=== PATIENT | female | born 1945 | race Caucasian/White ===

== ENCOUNTER → 2016-05-20 | Outpatient (CLI) | payer OTHER ==
[2016-05-20 13:04] LABS: URINE APPEARANCE CLEAR (CLEAR); URINE BILIRUBIN NEG (NEG); URINE COLOR YELLOW; URINE NITRITE NEG (NEG); URINE PH 6.5 (4.5-7.5); URINE SPECIFIC GRAVITY 1.024 (1.000-1.030); UROBILINOGEN NEG (NEG); ZZUR CULT IF INDIC CLEAN CATCH NO
[2016-05-20 13:08] LABS: MANUAL MICROSCOPIC REQUIRED? NO; REVIEW REQ? NO
[2016-05-20 13:18] LABS: ALT/SGPT 28 U/L (12-78); BLOOD UREA NITROGEN 16 mg/dl (7-18); BUN/CREATININE RATIO 22.2 (10-20); CALCIUM 9.4 mg/dl (8.5-10.1); CARBON DIOXIDE 31 mmol/L (21-32); CHLORIDE 106 mmol/L (98-107); GLUCOSE 102 mg/dl (70-99); POTASSIUM 3.9 mmol/L (3.5-5.1); SODIUM 142 mmol/L (136-145)
[2016-05-20 13:21] LABS: ALKALINE PHOSPHATASE 82 U/L (45-117); AST/SGOT 18 U/L (15-37); CHOLESTEROL 134 mg/dl (0-200); CHOLESTEROL/HDL RATIO 2.9; HDL CHOLESTEROL 47 mg/dl; LDL CHOLESTEROL CALCULATED 63 mg/dl; TRIGLYCERIDES 120 mg/dl (0-150); VERY LOW DENSITY LIPOPROT CALC 24 mg/dl
[2016-05-20 13:49] LABS: ESTIMATED AVERAGE GLUCOSE 108 mg/dl; HA1C FLAG Normal (Normal)
== END | disposition home or self-care (01) ==
LOC: C.LABBFT 08:44
PROVIDERS: ATTEND Physician Assistant Medical
DX: R73.01 Impaired fasting glucose (principal); E78.5 Hyperlipidemia, unspecified; E55.9 Vitamin D deficiency, unspecified

== ENCOUNTER → 2016-07-24 | Outpatient (CLI) | payer OTHER ==
--- NOTE | 2016-07-25 14:23 | MAMMOGRAPHY REPORT ---
BILATERAL DIGITAL SCREENING MAMMOGRAM WITH CAD: 07/24/2016 CLINICAL HISTORY: Routine screening. Patient has no complaints. TECHNIQUE: Bilateral CC and MLO views were obtained. Current study was also evaluated with a Compute r Aided Detection (CAD) system. COMPARISON: Comparison is made to exams dated: 07/19/2015 mammogram, 07/11/2014 mammogram, 07/07/2013 m ammogram, 07/01/2012 mammogram, 01/01/2012 mammogram, and 07/01/2011 mammogram - [facility]. BREAST COMPOSITION: The tissue of both breasts is heterogeneously dense, which may obscure small mas ses. Mild involutional changes comparing to more remote available prior mammograms. FINDINGS: There are numerous bilateral benign rim calcifications. No new suspicious mass, architectu ral distortion or cluster of suspicious microcalcifications is seen. IMPRESSION: ACR BI-RADS CATEGORY 1: NEGATIVE There is no mammographic evidence of malignancy. A 1 year screening mammogram is recommended. The pa tient will receive written notification of the results. Approximately 10% of breast cancers are not detected with mammography. A negative mammographic report should not delay biopsy if a clinically suggestive mass is present. Charo Hernandez M.D. ay/:07/24/2016 16:22:25 Sap Architect: Belem Avila RT(R)(Jair)(BD), [facility] letter sent: Normal 1/2 BI-RADS Code: ACR BI-RADS Category 1: Negative
== END | disposition home or self-care (01) ==
LOC: C.MAMM 08:21
PROVIDERS: ATTEND Internal Medicine
DX: Z12.31 Encounter for screening mammogram for malignant neoplasm of breast (principal)

== ENCOUNTER → 2016-12-09 | Outpatient (CLI) | payer OTHER ==
[2016-12-09 12:28] LABS: BASO ABS # 0.09 K/uL (0-0.2); COMPLETE YES; EOS % 2.2 %; HEMATOCRIT 44.8 % (37-47); IG% 0.3 %; LYMPH % 26.3 %; LYMPH ABS # 2.38 K/uL (1.2-3.4); MEAN CELL VOLUME 92.6 fL (80-100); MEAN CORPUSCULAR HEMOGLOBIN 30.8 pg (25-34); MEAN CORPUSCULAR HGB CONC 33.3 g/dl (32-36); MEAN PLATELET VOLUME 11.7 fL (7.4-10.4); MONO % 7.1 %; NEUT % 63.1 %; PLATELET COUNT 274 K/uL (130-400); RED BLOOD COUNT 4.84 M/uL (4.2-5.4); WHITE BLOOD COUNT 9.05 K/uL (4.8-10.8)
[2016-12-09 12:29] LABS: URINE APPEARANCE CLEAR (CLEAR); URINE BILIRUBIN NEG (NEG); URINE COLOR YELLOW; URINE EPITHELIAL CELL AUTO 20-30 /lpf (0-5); URINE NITRITE NEG (NEG); URINE PH 6.5 (4.5-7.5); URINE SPECIFIC GRAVITY 1.022 (1.000-1.030); UROBILINOGEN NEG (NEG); ZZUR CULT IF INDIC CLEAN CATCH NO
[2016-12-09 12:36] LABS: MANUAL MICROSCOPIC REQUIRED? NO; REVIEW REQ? NO
[2016-12-09 12:46] LABS: ALT/SGPT 28 U/L (12-78); BLOOD UREA NITROGEN 14 mg/dl (7-18); BUN/CREATININE RATIO 19.7 (10-20); CALCIUM 9.9 mg/dl (8.5-10.1); CARBON DIOXIDE 29 mmol/L (21-32); CHLORIDE 105 mmol/L (98-107); CHOLESTEROL 125 mg/dl (0-200); CREATININE 0.69 mg/dl (0.60-1.20); GLUCOSE 102 mg/dl (70-99); POTASSIUM 4.3 mmol/L (3.5-5.1); SODIUM 140 mmol/L (136-145); TRIGLYCERIDES 99 mg/dl (0-150); VERY LOW DENSITY LIPOPROT CALC 20 mg/dl
[2016-12-09 12:52] LABS: ALB/GLOB RATIO 0.9 (0.9-2); ALKALINE PHOSPHATASE 82 U/L (45-117); AST/SGOT 19 U/L (15-37); CHOLESTEROL/HDL RATIO 2.8; HDL CHOLESTEROL 45 mg/dl; LDL CHOLESTEROL CALCULATED 60 mg/dl
[2016-12-09 13:00] LABS: ESTIMATED AVERAGE GLUCOSE 108 mg/dl; HA1C FLAG Normal (Normal)
[2016-12-09 13:11] LABS: RATIO 34.2 mcg/mg (0-30.0)
== END | disposition home or self-care (01) ==
LOC: C.LABBFT 07:56
PROVIDERS: ATTEND Physician Assistant Medical
DX: I10 Essential (primary) hypertension (principal); R73.01 Impaired fasting glucose; E55.9 Vitamin D deficiency, unspecified

== ENCOUNTER → 2016-12-16 | Outpatient (CLI) | payer OTHER ==
[2016-12-16 12:45] LABS: URINE APPEARANCE CLEAR (CLEAR); URINE BILIRUBIN NEG (NEG); URINE COLOR YELLOW; URINE EPITHELIAL CELL AUTO 20-30 /lpf (0-5); URINE NITRITE NEG (NEG); URINE SPECIFIC GRAVITY 1.019 (1.000-1.030); UROBILINOGEN NEG (NEG)
[2016-12-16 12:53] LABS: MANUAL MICROSCOPIC REQUIRED? NO; REVIEW REQ? NO
== END | disposition home or self-care (01) ==
LOC: C.LABBFT 07:59
PROVIDERS: ATTEND Physician Assistant Medical
DX: R31.29 Other microscopic hematuria (principal)

== ENCOUNTER → 2017-06-04 | Outpatient (CLI) | payer OTHER ==
[2017-06-04 12:57] LABS: HEMOGLOBIN A1C 5.6 % (4.5-5.6)
[2017-06-04 13:19] LABS: BLOOD UREA NITROGEN 11 mg/dl (7-18); CREATININE 0.76 mg/dl (0.60-1.20); GLUCOSE 95 mg/dl (70-99)
[2017-06-04 13:20] LABS: ALBUMIN 3.7 gm/dl (3.4-5.0); ALT/SGPT 35 U/L (12-78); AST/SGOT 23 U/L (15-37); CALCIUM 9.6 mg/dl (8.5-10.1); CARBON DIOXIDE 27 mmol/L (21-32); POTASSIUM 3.6 mmol/L (3.5-5.1); SODIUM 138 mmol/L (136-145)
[2017-06-04 13:24] LABS: ALKALINE PHOSPHATASE 84 U/L (45-117); CHOLESTEROL 110 mg/dl (0-200); LDL CHOLESTEROL CALCULATED 51 mg/dl; TOTAL PROTEIN 7.5 gm/dl (6.4-8.2)
== END | disposition home or self-care (01) ==
LOC: C.LABBFT 08:21
PROVIDERS: ATTEND Physician Assistant Medical
DX: R73.01 Impaired fasting glucose (principal)

== ENCOUNTER 2024-04-23 13:00 | Inpatient (IN) ==
--- NOTE | 2024-04-23 13:43 | Emergency Department Note ---
Impression & Plan Acute hypoxic respiratory failure, Influenza A ED Provider Note NAME: ANGEL DAMICO AGE: 78 SEX: F : 1945 ARRIVES VIA: Walk-In INFORMANT: Patient ED PROVIDER(S): Eliezer Mccormick DO CHIEF COMPLAINT: cough, and weakness HPI: Patient is a 78-year-old female with a past medical history of hypertension, hyperlipidemia and hypothyroidism who presents to the ER for cough, congestion. Symptoms started on Thursday. She denies any chest pain or real shortness of breath. No belly pain. No nausea, vomiting, or diarrhea. No history of smoking. She has been around her granddaughter who is also been sick. ADDITIONAL HISTORY OBTAINED: is present bedside and provides additional history and notes that he started getting sick with the same symptoms a day before his started. Chronic Medical/Social Conditions Affecting Care: Per HPI PAST MEDICAL HISTORY:See Below PAST SURGICAL HISTORY:See Below FAMILY HISTORY:See Below SOCIAL HISTORY:See Below HOME MEDICATIONS:See Below ALLERGIES:See Below VITALS:See Below PHYSICAL EXAMINATION: GENERAL: Sitting up in bed, alert, persistent cough, disheveled EYE EXAM: normal conjunctiva. PERRL and EOM's grossly intact. OROPHARYNX: no exudate, no erythema, lips, buccal mucosa, and tongue normal and mucous membranes are moist NECK: supple, no nuchal rigidity, no adenopathy, non-tender LUNGS: Wheezing bilaterally. Normal chest wall mechanics HEART: no murmurs, S1 normal and S2 normal ABDOMEN: abdomen soft, non-tender, normo-active bowel sounds, no masses, no rebound or guarding. UPPER EXTREMITIES: upper extremities are grossly normal. LOWER EXTREMITIES: No pitting edema. NEURO EXAM: Normal sensorium, cranial nerves II-XII grossly intact, normal speech, no gross weakness of arms, no gross weakness of legs. MEDICAL DECISION MAKING: Patient is a 78-year-old female who presents ER for above-stated complaint. IV was established and blood work was obtained. Labs show a leukocytosis of 2000. No significant anemia. BMP with LFTs bilirubin was unremarkable. Mild transaminitis. Troponin was negative. Pro-Bong was normal. Viral panel was positive for influenza. Chest x-ray was clean. Patient was given neb treatments. Patient was found to be hypoxic at 87% on room air. She was placed on 2 L nasal cannula. She was initially hypotensive and tachycardic and this responded with IV fluids. She was also given IV Rocephin. Updated bedside discussed case with the hospitalist for further evaluation management treatment. Consults/Care Managements Discussions: Per [facility] Triage Nursing notes reviewed. Limited review of prior medical records performed Vital Signs: reviewed and remarkable for hypotensive, tachycardic and hypoxic Differential diagnosis: Differential diagnosis includes etiologies such as sepsis, UTI, pneumonia, metabolic, electrolyte abnormalities, cardiac sources, intracerebral event, toxicologic, neurological, as well as others were entertained. ER treatment provided: See below Diagnostics interpreted by me include EKG and cardiac monitoring as listed below: -Cardiac Monitoring: An order was placed for continuous cardiac monitoring. The monitor shows a rate of 95 with sinus rhythm. -ECG: Sinus rhythm rate 84 Normal axis No PVCs QTc 434 -Laboratory studies:Interpreted by me as stated above in MDM and shown below. Imaging studies: Xrays: As interpreted by me: Portable AP upright 1 view of the chest shows no focal infiltrate CTs show: none Procedures:none Critical Care: I have personally spent 33 minutes of critical care time in the direct management of this patient. This includes bedside care, interpretation of diagnostic studies, and testing, discussion with consultants, patient, and family members, and other required patient management activities. This 33 minutes is in excess of all separately billable procedures. Past Med/Surg History Problem List (Updated 04/23/24 @ 18:39 by Eliezer Mccormick DO) Influenza A (Acute) Acute hypoxic respiratory failure (Acute) Influenza A Wears hearing aid in both ears Phonak L90R disp 06/11/22 Sensorineural hearing loss (SNHL) of both ears Vitamin D deficiency (Acute) Vertigo (Acute) hx - no recent problems Postmenopausal hormone therapy (Acute) Obesity (Acute) Muscle spasm (Acute) Microscopic hematuria (Acute) Impaired fasting glucose (Acute) Hypertension (Chronic) Hyperlipidemia (Chronic) Hypercalcemia (Acute) Cervical radiculopathy (Acute) Carotid artery plaque (Chronic) Carotid ultrasound October 24, 2019 with less than 50% stenoses in the internal carotid arteries. Antegrade flow both vertebral arteries. Greater than 50% stenosis right external carotid artery. Compared to study of May 2016 internal carotid artery findings unchanged. Right external carotid artery stenosis new. BMI 33.0-33.9,adult (Acute) Arthritis (Acute) Urethral caruncle Family history of colon cancer Hymenal remnant Moderate aortic stenosis (Chronic) Echocardiogram September 28, 2020 with normal biventricular systolic function, mild LVH, moderate aortic stenosis, trace mitral and trace tricuspid regurgitation. ANA 1.0 sq cm. DVI 0.32. Aortic valve mean gradient 21.8 mm Hg. Hypothyroidism Medical History Anemia Kidney stones Osteoarthritis Surgical History H/O colonoscopy History of bilateral tubal ligation History of dilation and curettage History of left cataract surgery Family History Mother Colon cancer Brother Colon cancer Prostate cancer Myocardial infarction Father Heart disease Myocardial infarction Family/Other Hypertension Other No family history of adverse response to anesthesia No family history of bleeding disorder Denies family history of Ovarian cancer Breast cancer Social History Smoking Status: Never smoker Second Hand Exposure: No; Do You Dip or Chew Tobacco: No; Hx Alcohol Use: No Hx Substance Use: No Preferred Language: Zimbabwean Communication Ability: Effective Visual Impairment: No Limitations Hearing Ability: Hard of Hearing Inspector Weights And Measures Required: No Beliefs That Will Affect Care: None marital status: Current Living Situation: Spouse current occupational status: retired current occupation: used to work at [employer] Feels Safe at Home: Yes Childhood Exposure to Second-Hand Smoke: Yes Diet: low carbohydrate, low salt and other Diet Comment: cutting back on bread consumption caffeine: Yes Dental Care, Regularly: No Physical Activity Frequency: 3-4 Times per Week Physical Activity Frequency Comment: Up and down stairs often Seatbelt Use: always Sunscreen Use: Yes Assistive Devices: Glasses and Hearing Aid - Bilateral Allergies Allergies Allergy/AdvReac Type Severity Reaction Status Date / Time No Known Drug Allergies Allergy Verified 03/30/24 10:14 Home Meds Previous Rx's Medication Instructions Recorded Synthroid 25 mcg tablet 25 mcg PO DAILY #90 tabs 03/30/24 (levothyroxine) amlodipine 10 mg tablet 10 mg PO QAM #90 tabs 03/30/24 atorvastatin 20 mg tablet 20 mg PO DAILY #90 tabs 03/30/24 hydrochlorothiazide 25 mg tablet 25 mg PO QAM #90 tabs 03/30/24 lisinopril 40 mg tablet 40 mg PO QAM #90 tabs 03/30/24 metoprolol succinate 100 mg 100 mg PO QAM #90 tabs 03/30/24 tablet,extended release 24 hr potassium chloride 10 mEq 10 meq PO QAM #90 tabs 03/30/24 tablet,extended release Results & Data (ED) Vital Signs Vital Signs - 24 hr 04/23/24 13:01 04/23/24 13:27 04/23/24 14:01 Temperature 36.5 C Temperature Source Temporal Artery Scan Pulse Rate 95 H 86 Pulse Rate [Right Finger] Respiratory Rate 18 Respiratory Effort / Characteristics Non-Labored Respiratory Depth Normal Blood Pressure 97/62 L Blood Pressure [Right Arm] Blood Pressure Mean 73 Blood Pressure Mean [Right Arm] Blood Pressure Position Sitting Pulse Oximetry 89 L 89 L Oxygen Delivery Method Room Air Room Air Sepsis Recent Fever Within 48 Hours Yes Sepsis New/Unexplained Change in Mental Status No Sepsis Action Taken by Nursing No Action Required Oxygen Flow Rate - Titration 2 Pulse Oximetry Post Tiitration 92 04/23/24 15:01 04/23/24 15:59 Temperature Temperature Source Pulse Rate Pulse Rate [Right Finger] 85 Respiratory Rate 24 Respiratory Effort / Characteristics Spontaneous SOB on Exertion Respiratory Depth Blood Pressure 134/66 Blood Pressure [Right Arm] 117/44 L Blood Pressure Mean 80 Blood Pressure Mean [Right Arm] 68 Blood Pressure Position Pulse Oximetry 93 Oxygen Delivery Method Room Air Sepsis Recent Fever Within 48 Hours Sepsis New/Unexplained Change in Mental Status Sepsis Action Taken by Nursing Oxygen Flow Rate - Titration Pulse Oximetry Post Tiitration Laboratory Data 04/23/24 14:00 04/23/24 14:00 Lab Results 04/23/24 04/23/24 04/23/24 Range/Units 13:25 14:00 14:07 WBC 17.16 H (4.8-10.8) K/ul RBC 5.04 (4.20-5.40) M/uL Hgb 15.3 (12.0-16.0) g/dl POC Hgb 15.6 (12.0-16.0) g/dl Hct 44.7 (37.0-47.0) % POC Hct 46 (37-47) % MCV 88.7 (80.0-100.0) fL MCH 30.4 (25.0-34.0) pg MCHC 34.2 (32.0-36.0) g/dL RDW Std Deviation 40.4 (36.4-46.3) fL RDW Coeff of [place] 12.5 (11.5-14.5) % Plt Count 273 (130-400) K/uL MPV 10.9 (9.4-12.4) fL Immature Gran % (Auto) 1.5 % Neut % (Auto) 82.1 % Lymph % (Auto) 7.1 % [facility] % (Auto) 8.9 % Eos % (Auto) 0.1 % Baso % (Auto) 0.3 % Neut # (Auto) 14.11 H (1.40-6.50) K/uL Lymph # (Auto) 1.21 (1.20-3.40) K/uL [facility] # (Auto) 1.52 H (0.11-0.59) K/uL Eos # (Auto) 0.01 (0.00-0.50) K/uL Baso # (Auto) 0.06 (0.00-0.20) K/uL Immature Gran # (Auto) 0.25 H (0.01-0.20) K/uL POC Sodium 138 (135-144) mmol/L Sodium 135 L (136-145) mmol/L POC Potassium 3.8 (3.3-5.0) mmol/L Potassium 4.1 (3.5-5.1) mmol/L POC Chloride 100 L (101-112) mmol/L Chloride 101 (98-107) mmol/L Carbon Dioxide 25 (21-32) mmol/L POC Total CO2 25 (24-31) mmol/L Anion Gap 9 (3-11) POC Anion Gap 18.0 (16-25) mmol/L POC BUN 12 (7-18) mg/dl BUN 13 (6-23) mg/dl Creatinine 0.81 (0.6-1.2) mg/dl POC Creatinine 0.8 (0.6-1.3) mg/dl Est Cr Clr Drug Dosing 64.7 ml/min eGFR 74.26 BUN/Creatinine Ratio 16.0 (10-20) Glucose 127 H (70-99(Fasting)) mg/dl POC Glucose (other) 134 H (70-99) mg/dl Lactate 1.5 (0.4-2.0) mmol/L Calcium 9.0 (8.6-10.3) mg/dl POC Ioniz Calcium Misael 1.13 (1.12-1.32) mmol/l Total Bilirubin 0.9 (0.2-1.0) mg/dl AST 48 H (13-39) U/L ALT 57 H (7-52) U/L Alkaline Phosphatase 68 (34-104) U/L Troponin I High Sens 6.4 (0-14) pg/ml Total Protein 7.6 (6.0-8.3) gm/dl Albumin 3.7 (3.4-5.0) gm/dl Globulin 3.9 (2.5-4.0) gm/dl Albumin/Globulin Ratio 0.9 (0.9-2) Lipase 8 L (11-82) U/L Procalcitonin 0.05 (0-0.5) ng/ml Adenovirus (PCR) Not Detected (NotDetected) B. pertussis DNA (PCR) Not Detected (NotDetected) B.parapertussis DNA PCR Not Detected (NotDetected) C. pneumoniae DNA (PCR) Not Detected (NotDetected) Coronavirus OC43 (PCR) Not Detected (NotDetected) Coronavirus HKU1 (PCR) Not Detected (NotDetected) Coronavirus 229E (PCR) Not Detected (NotDetected) SARS-CoV-2 (PCR) Not Detected (NotDetected) Coronavirus NL63 (PCR) Not Detected (NotDetected) Human Metapneumovir PCR Not Detected (NotDetected) Influenza A (H3) PCR DETECTED A (NotDetected) Influenza Type B (PCR) Not Detected (NotDetected) M. pneumoniae (PCR) Not Detected (NotDetected) Parainfluenza 1 (PCR) Not Detected (NotDetected) Parainfluenza 2 (PCR) Not Detected (NotDetected) Parainfluenza 3 (PCR) Not Detected (NotDetected) Parainfluenza 4 (PCR) Not Detected (NotDetected) RSV (PCR) Not Detected (NotDetected) Entero/Rhino (PCR) Not Detected (NotDetected) Administered Medications Discontinued Medications Albuterol (Albuterol 0.083% Nebu Soln 3 Ml Vial) 2.5 mg NEB NOW STA; Protocol Stop: 04/23/24 15:24 Last Admin: 04/23/24 15:42 Dose: 2.5 mg Documented By: CEF Benzonatate (Benzonatate 100 Mg Capsule) 100 mg PO NOW ONE Stop: 04/23/24 13:39 Last Admin: 04/23/24 14:17 Dose: 100 mg Documented By: SANDER Sodium Chloride (Nss) 1,000 mls @ 999 mls/hr IV .Q1H1M ONE Stop: 04/23/24 14:38 Last Infusion: 04/23/24 17:14 Dose: Infused Documented By: Admin: 04/23/24 14:18 Dose: 999 mls/hr Documented By: SANDER Ceftriaxone Sodium (Rocephin) 2,000 mg in 50 mls @ 100 mls/hr IV NOW STA Stop: 04/23/24 14:13 Last Infusion: 04/23/24 15:45 Dose: Infused Documented By: Admin: 04/23/24 14:17 Dose: 100 mls/hr Documented By: MWMimi Sodium Chloride (Nss) 1,000 mls @ 999 mls/hr IV .Q1H1M ONE Stop: 04/23/24 16:23 Last Infusion: 04/23/24 17:14 Dose: Infused Documented By: Admin: 04/23/24 15:45 Dose: 999 mls/hr Documented By: CEF Imaging Data Radiologist's Impression: Chest X-Ray 04/23/24 13:29 HISTORY: Chest pain. TECHNIQUE: Portable AP radiographs of the chest. COMPARISON: None. FINDINGS: No focal lung consolidation. No pneumothorax or pleural effusion. Normal heart size. Left-sided aortic arch. Midline trachea. No acute osseous abnormality. Included upper abdomen is unremarkable. IMPRESSION: No acute cardiopulmonary findings. Electronically signed by Viral Damon 04-23-2024 2:22 PM Discharge Plan Visit Data Chief Complaint: Flu Like Symptoms Stated Complaint: COUGH, DIARRHEA, DRY MOUTH ED Provider: Eliezer Mccormick Discharge Problem: Acute hypoxic respiratory failure, Influenza A Discharge Instructions Interventions: ED Discharge Assessment Last Done: 04/23/24 18:22
[2024-04-23] MEDS: BENZONATATE 100 MG CAPSULE PO ONE (14:17)
[2024-04-23] MEDS: cefTRIAXone SODIUM 2,000 MG/50 ML BAG IV STA (14:17)
[2024-04-23] MEDS: SODIUM CHLORIDE 0.9% 1,000 ML IV ONE ×2 (14:18→15:45)
[2024-04-23 14:20] LABS: iSTAT Creatinine 0.8 mg/dl (0.6-1.3); iSTAT Hemoglobin 15.6 g/dl (12.0-16.0); iSTAT Ionized Calcium 1.13 mmol/l (1.12-1.32); iSTAT Potassium 3.8 mmol/L (3.3-5.0)
--- NOTE | 2024-04-23 14:22 | XRay Report ---
HISTORY: Chest pain. TECHNIQUE: Portable AP radiographs of the chest. COMPARISON: None. FINDINGS: No focal lung consolidation. No pneumothorax or pleural effusion. Normal heart size. Left-sided aortic arch. Midline trachea. No acute osseous abnormality. Included upper abdomen is unremarkable. IMPRESSION: No acute cardiopulmonary findings. Electronically signed by Viral Damon 04-23-2024 2:22 PM
[2024-04-23 14:30] LABS: Basophils # (auto) 0.06 K/uL (0.00-0.20); Basophils % (auto) 0.3 %; Eosinophils # (auto) 0.01 K/uL (0.00-0.50); Eosinophils % (auto) 0.1 %; Hematocrit (blood only) 44.7 % (37.0-47.0); Hemoglobin 15.3 g/dl (12.0-16.0); Immature Granulocytes # (auto) 0.25 K/uL (0.01-0.20); Immature Granulocytes % (auto) 1.5 %; Lymphocytes # (auto) 1.21 K/uL (1.20-3.40); Lymphocytes % (auto) 7.1 %; Mean Corpuscular Hemoglobin 30.4 pg (25.0-34.0); Mean Corpuscular Hgb Conc 34.2 g/dL (32.0-36.0); Mean Corpuscular Volume 88.7 fL (80.0-100.0); Mean Platelet Volume 10.9 fL (9.4-12.4); Monocytes # (auto) 1.52 K/uL (0.11-0.59); Monocytes % (auto) 8.9 %; Neutrophils # (auto) 14.11 K/uL (1.40-6.50); Neutrophils % (auto) 82.1 %; Platelet Count 273 K/uL (130-400); RDW Coefficient of Variation 12.5 % (11.5-14.5); RDW Standard Deviation 40.4 fL (36.4-46.3); Red Blood Count 5.04 M/uL (4.20-5.40); White Blood Count 17.16 K/ul (4.8-10.8)
[2024-04-23 14:43] LABS: Albumin Globulin Ratio 0.9 (0.9-2); Albumin Level 3.7 gm/dl (3.4-5.0); Bilirubin,Total 0.9 mg/dl (0.2-1.0); Creatinine Clr Calc Pharmacy 64.7 ml/min; Globulin 3.9 gm/dl (2.5-4.0); Potassium 4.1 mmol/L (3.5-5.1); Total Protein 7.6 gm/dl (6.0-8.3)
[2024-04-23 14:50] LABS: Troponin I High Sensitivity 6.4 pg/ml (0-14)
[2024-04-23 15:15] LABS: Adenovirus PCR Not Detected (NotDetected); Bordetella parapertussis PCR Not Detected (NotDetected); Bordetella pertussis PCR Not Detected (NotDetected); Chlamydia pneumoniae PCR Not Detected (NotDetected); Coronavirus 229E PCR Not Detected (NotDetected); Coronavirus CoV-2 (COVID19)PCR Not Detected (NotDetected); Coronavirus HKU1 PCR Not Detected (NotDetected); Coronavirus NL63 PCR Not Detected (NotDetected); Coronavirus OC43PCR Not Detected (NotDetected); Human Metapneumovirus PCR Not Detected (NotDetected); Influenza A (H3) PCR DETECTED (NotDetected); Influenza B PCR Not Detected (NotDetected); Mycoplasma pneumoniae PCR Not Detected (NotDetected); Parainfluenza Virus 1 PCR Not Detected (NotDetected); Parainfluenza Virus 2 PCR Not Detected (NotDetected); Parainfluenza Virus 3 PCR Not Detected (NotDetected); Parainfluenza Virus 4 PCR Not Detected (NotDetected); Respiratory Syncytial VirusPCR Not Detected (NotDetected); Rhinovirus/Enterovirus PCR Not Detected (NotDetected)
[2024-04-23] MEDS: ALBUTEROL 0.083% NEBU SOLN 3 ML VIAL NEB STA (15:42)
--- NOTE | 2024-04-23 15:46 | History & Physical Report ---
Date of Service April 23, 2024 Assessment & Plan (1) Influenza A: Plan: Acute hypoxic respiratory failure due to flu A Begin with a viral illness likely flu 8 days ago, improving and then with double sickening around 4 days ago. Due to double sickening and leukocytosis with left shift antibiotic coverage for superimposed pneumonia is warranted Chest x-ray does not show lobar pneumonia Tamiflu ordered and continued Rocephin/doxycycline ordered Nebs as needed, titrate oxygen to goal 90%. Patient is 94% on 2 L nasal cannula at time of assessment Hypertension Continue amlodipine, lisinopril, hydrochlorothiazide, metoprolol Hyperlipidemia Continue statin Hypothyroidism Continue Synthroid DVT prophylaxis: Lovenox Diet: Heart healthy Disposition: MSO CODE STATUS: Full code (2) Hypothyroidism: (3) Hypertension: (4) Hyperlipidemia: History of Present Illness Primary Care Provider: Evaristo Wood MD Patient is a 78-year-old female with past medical history of hypertension, hyperlipidemia, hypothyroidism who presents with [id number] day of cough congestion and shortness of breath. Leukocytosis of 17, +transaminitis without elevated bilirubin or alk phos, normal troponin. Patient is influenza A positive. Chest x-ray does not show a focal lung consolidation. Hypoxic and recommended for admission for fluid with acute respiratory failure. She is seen at the bedside. She reports she feels a little bit better during her breathing treatment. She reports that she came down with the flu around 8 days ago. She started to feel better and thought she was improving around Thursday and then started to rapidly worsen starting around 4 days ago. Has had chills, cough, shortness of breath. No chest pain or chest pressure. Denies any history of CHF/heart failure/[place]. She has not been lightheaded or dizzy but feels weak. She has been wheezing. Denies history of asthma/COPD. She denies medication allergies. Full code. No other questions at time of assessment. Medical History: Reviewed Medications: Reviewed Surgical History: Reviewed Family history: Reviewed Allergies: Reviewed Social History: Reviewed Code Status: Full Allergies Allergy/AdvReac Type Severity Reaction Status Date / Time No Known Drug Allergies Allergy Verified 03/30/24 10:14 Home Medications Medication Instructions Recorded Confirmed Type Synthroid 25 mcg tablet 25 mcg PO DAILY #90 tabs 03/30/24 04/23/24 Rx (levothyroxine) amlodipine 10 mg tablet 10 mg PO QAM #90 tabs 03/30/24 04/23/24 Rx atorvastatin 20 mg tablet 20 mg PO DAILY #90 tabs 03/30/24 04/23/24 Rx hydrochlorothiazide 25 mg tablet 25 mg PO QAM #90 tabs 03/30/24 04/23/24 Rx lisinopril 40 mg tablet 40 mg PO QAM #90 tabs 03/30/24 04/23/24 Rx metoprolol succinate 100 mg 100 mg PO QAM #90 tabs 03/30/24 04/23/24 Rx tablet,extended release 24 hr potassium chloride 10 mEq 10 meq PO QAM #90 tabs 03/30/24 04/23/24 Rx tablet,extended release Past Med/Surg History Problem List (Updated 04/23/24 @ 15:57 by Tomás Alvares MD) Influenza A Wears hearing aid in both ears Phonak L90R disp 06/11/22 Sensorineural hearing loss (SNHL) of both ears Vitamin D deficiency (Acute) Vertigo (Acute) hx - no recent problems Postmenopausal hormone therapy (Acute) Obesity (Acute) Muscle spasm (Acute) Microscopic hematuria (Acute) Impaired fasting glucose (Acute) Hypertension (Chronic) Hyperlipidemia (Chronic) Hypercalcemia (Acute) Cervical radiculopathy (Acute) Carotid artery plaque (Chronic) Carotid ultrasound October 24, 2019 with less than 50% stenoses in the internal carotid arteries. Antegrade flow both vertebral arteries. Greater than 50% stenosis right external carotid artery. Compared to study of May 2016 internal carotid artery findings unchanged. Right external carotid artery stenosis new. BMI 33.0-33.9,adult (Acute) Arthritis (Acute) Urethral caruncle Family history of colon cancer Hymenal remnant Moderate aortic stenosis (Chronic) Echocardiogram September 28, 2020 with normal biventricular systolic function, mild LVH, moderate aortic stenosis, trace mitral and trace tricuspid regurgitation. ANA 1.0 sq cm. DVI 0.32. Aortic valve mean gradient 21.8 mm Hg. Hypothyroidism Medical History Anemia Kidney stones Osteoarthritis Surgical History H/O colonoscopy History of bilateral tubal ligation History of dilation and curettage History of left cataract surgery Family History Mother Colon cancer Brother Colon cancer Prostate cancer Myocardial infarction Father Heart disease Myocardial infarction Family/Other Hypertension Other No family history of adverse response to anesthesia No family history of bleeding disorder Denies family history of Ovarian cancer Breast cancer Social History Smoking Status: Never smoker Second Hand Exposure: No; Do You Dip or Chew Tobacco: No; Hx Alcohol Use: No Hx Substance Use: No Preferred Language: Kyrgyz Communication Ability: Effective Visual Impairment: No Limitations Hearing Ability: Hard of Hearing Retort Operator Required: No Beliefs That Will Affect Care: None marital status: Current Living Situation: Spouse current occupational status: retired current occupation: used to work at [id number] Feels Safe at Home: Yes Childhood Exposure to Second-Hand Smoke: Yes Diet: low carbohydrate, low salt and other Diet Comment: cutting back on bread consumption caffeine: Yes Dental Care, Regularly: No Physical Activity Frequency: 3-4 Times per Week Physical Activity Frequency Comment: Up and down stairs often Seatbelt Use: always Sunscreen Use: Yes Assistive Devices: Glasses and Hearing Aid - Bilateral Physical Exam Physical Exam: General: A&Ox3. NAD. Cooperative. HEENT: Atraumatic, normocephalic. Pulm: Diminished but clear. On neb at time of visit. Symmetrical chest rise. No increased work of breathing. No respiratory distress. Cardiac: RRR, -mrg. Radial pulses intact and symmetrical. Abdominal: Nontender, nondistended, soft. BS present. Ext: warm, dry Results & Data Results & Data Vital Signs (Past 12 Hours) Vital Signs Temp Pulse Pulse Resp BP BP Pulse Ox 04/23/24 15:01 85 24 117/44 L 93 04/23/24 14:01 86 04/23/24 13:27 89 L 04/23/24 13:01 36.5 C 95 H 18 97/62 L 89 L O2 Del Method 04/23/24 15:01 Room Air 04/23/24 14:01 04/23/24 13:27 Room Air 04/23/24 13:01 Room Air PG Care Time/CCT Total # of Minutes Spent Total Time Spent with Patient: Total time spent is greater than 50% in coordination of care (as documented) at patient's floor/unit and/or counseling patient: Coding Level of Care Code 59956 INT INP/OBS CARE MIN Diagnoses Influenza A J10.1 Acquired hypothyroidism E03.9 Hypothyroidism type: acquired Primary hypertension I10 Hypertension type: primary hypertension Mixed hyperlipidemia E78.2 Hyperlipidemia type: mixed hyperlipidemia (2) Hypothyroidism Hypothyroidism type: acquired Qualified Code(s): E03.9 - Hypothyroidism, unspecified (3) Hypertension Hypertension type: primary hypertension Qualified Code(s): I10 - Essential (primary) hypertension (4) Hyperlipidemia Hyperlipidemia type: mixed hyperlipidemia Qualified Code(s): E78.2 - Mixed hyperlipidemia
[2024-04-23] MEDS ORDERED: POLYETHYLENE (MIRALAX) 17 GM PACK PO PRN (18:22)
[2024-04-23] MEDS ORDERED: ACETAMINOPHEN 325 MG TAB PO PRN (18:22)
[2024-04-23] MEDS: DOXYCYCLINE HYCLATE 100 MG in DEXTROSE 5% MINI-B 100 ML IV SCH (19:00)
[2024-04-23] MEDS: ENOXAPARIN INJ 40 MG/0.4 ML SYR SQ SCH (21:37)
[2024-04-23] MEDS: OSELTAMIVIR PHOSPHATE 75 MG CAP PO SCH (21:37)
[2024-04-23] MEDS: COUGH DROP (SUGAR FREE) LOZ 24 LOZ/1 BOX BUCCAL PRN (21:53)
[2024-04-24 06:09] LABS: Basophils # (auto) 0.07 K/uL (0.00-0.20); Basophils % (auto) 0.5 %; Eosinophils # (auto) 0.06 K/uL (0.00-0.50); Eosinophils % (auto) 0.4 %; Hematocrit (blood only) 40.3 % (37.0-47.0); Hemoglobin 13.9 g/dl (12.0-16.0); Immature Granulocytes # (auto) 0.29 K/uL (0.01-0.20); Immature Granulocytes % (auto) 2.1 %; Lymphocytes # (auto) 2.69 K/uL (1.20-3.40); Lymphocytes % (auto) 19.2 %; Mean Corpuscular Hemoglobin 31.1 pg (25.0-34.0); Mean Corpuscular Hgb Conc 34.5 g/dL (32.0-36.0); Mean Corpuscular Volume 90.2 fL (80.0-100.0); Mean Platelet Volume 10.4 fL (9.4-12.4); Monocytes # (auto) 1.64 K/uL (0.11-0.59); Monocytes % (auto) 11.7 %; Neutrophils # (auto) 9.26 K/uL (1.40-6.50); Neutrophils % (auto) 66.1 %; Platelet Count 258 K/uL (130-400); RDW Coefficient of Variation 12.5 % (11.5-14.5); RDW Standard Deviation 41.6 fL (36.4-46.3); Red Blood Count 4.47 M/uL (4.20-5.40); White Blood Count 14.01 K/ul (4.8-10.8)
[2024-04-24] MEDS: LEVOTHYROXINE SODIUM 25 MCG TABLET PO SCH (06:18)
[2024-04-24 06:35] LABS: Calcium 8.4 mg/dl (8.6-10.3); Creatinine Clr Calc Pharmacy 87.4 ml/min; Potassium 3.4 mmol/L (3.5-5.1)
[2024-04-24] MEDS: lisinopril 40 MG TAB PO SCH (08:15)
[2024-04-24] MEDS: ATORVASTATIN 20 MG TAB PO SCH (08:16)
[2024-04-24] MEDS: METOPROLOL SUCC 50MG EXT REL TAB PO SCH (08:16)
[2024-04-24] MEDS: POTASSIUM CHLORIDE 10 MEQ TABCR PO STA (08:17)
[2024-04-24 08:40] LABS: Albumin Level 3.2 gm/dl (3.4-5.0); Bilirubin Direct 0.2 mg/dl (0-0.2); Bilirubin,Total 0.8 mg/dl (0.2-1.0); Total Protein 6.6 gm/dl (6.0-8.3)
[2024-04-24] MEDS: POTASSIUM CHLORIDE 10 MEQ TABCR PO SCH (09:19)
[2024-04-24] MEDS: amLODIPine BESYLATE 5 MG TAB PO SCH (09:19)
[2024-04-24] MEDS: hydroCHLOROthiazide 25 MG TAB PO SCH (09:19)
[2024-04-24] MEDS: SODIUM CHLOR 7% 4 ML NEB NEB SCH (10:29)
[2024-04-24] MEDS: ALBUTEROL 0.5% NEB SOLN 2.5 MG/0.5 ML VIAL NEB SCH ×2 (10:29→19:21)
[2024-04-24] MEDS: guaiFENesin 600 MG TABCR PO SCH (11:01)
--- NOTE | 2024-04-24 13:20 | Hospitalist Progress Note ---
Date of Service April 24, 2024 Assessment & Plan (1) Influenza A: (2) Hypothyroidism: (3) Hypertension: (4) Hyperlipidemia: Plan Patient is a 78-year-old female with past medical history of hypertension, hyperlipidemia, hypothyroidism who presents with 8 days of cough congestion and shortness of breath. initial evaluation showed positive for influenza A, chest x-ray did not show concomitant pneumonia. With initial oxygen requirement, patient was admitted for weaning of oxygen and treatment of influenza Acute hypoxic respiratory failure due to flu A Began with a viral illness likely flu 8 days ago, improving and then with double sickening around 4 days ago. Due to double sickening and leukocytosis with left shift antibiotic coverage for superimposed pneumonia is warranted - continue Rocephin and doxycycline Continue Tamiflu Added DuoNeb, saline neb, Mucinex. Wean oxygen as able, baseline is room air elevated LFTs likely related to viral illness, these have improved to normal limits lungs much improved since initiation of nebs, suspect with continued improvement possible discharge tomorrow 3/3 Hypertension Continue amlodipine, lisinopril, hydrochlorothiazide, metoprolol Hyperlipidemia Continue statin Hypothyroidism Continue Synthroid dispo: continue Inpatient stay, possible d/c tomorrow DVT prophylaxis Lovenox Admission and Anticipated Discharge Date Admission Date: April 23, 2024 Supervising Physician Co-Signing Physician Notes Attending Attestation - Chart reviewed, care plan d/w WILLIE Kearney. I agree w/ the ernst components of her documentation. Silvano García MD Subjective patient seen earlier this morning, reports feeling better and she was on room air however multiple continued coughing fits during my exam. She got up to go to the bathroom and came back and her oxygen was staying at 88% for a while. Mostly recall. This time is nonproductive. Denies fevers or chills Revisited this afternoon after starting neb treatments and lung sound improved. Recommend 1 more day of treatment as she does not have a nebulizer machine at home and she was agreeable to this Review of Systems Review of Systems: All systems reviewed & are unremarkable except as noted in Subjective Physical Exam Physical Exam: General: NAD, VS as above, Lying in bed appears ill Resp: normal respiratory effort, l rhonchi with expiratory wheezing throughout, dry cough. CV: RRR, no murmur, Abd: normal bowel sounds, non tender, no hepatosplenomegaly Extremities: Moves all extremities, no edema Neuro: A&O x3, Skin: intact, no lesions noted Results & Data Results & Data Vital Signs (Past 12 Hours) Vital Signs Temp Pulse Pulse Pulse Resp BP BP 04/24/24 10:30 81 18 04/24/24 08:00 04/24/24 07:40 98.4 F 81 20 129/73 04/24/24 07:25 98.1 F 67 18 103/65 Pulse Ox O2 Del Method O2 Flow Rate 04/24/24 10:30 91 Room Air 04/24/24 08:00 Room Air 04/24/24 07:40 93 Nasal Cannula 2 04/24/24 07:25 96 Room Air Laboratory Results CBC and chemistry reviewed. Potassium replaced PG Care Time/CCT Total # of Minutes Spent Total Time Spent with Patient: Total time spent is greater than 50% in coordination of care (as documented) at patient's floor/unit and/or counseling patient: Coding Level of Care Code 17884 SUB INP/OBS CARE 2/35MIN Diagnoses Influenza A J10.1 Acquired hypothyroidism E03.9 Hypothyroidism type: acquired Primary hypertension I10 Hypertension type: primary hypertension Mixed hyperlipidemia E78.2 Hyperlipidemia type: mixed hyperlipidemia (2) Hypothyroidism Hypothyroidism type: acquired Qualified Code(s): E03.9 - Hypothyroidism, unspecified (3) Hypertension Hypertension type: primary hypertension Qualified Code(s): I10 - Essential (primary) hypertension (4) Hyperlipidemia Hyperlipidemia type: mixed hyperlipidemia Qualified Code(s): E78.2 - Mixed hyperlipidemia
[2024-04-24] MEDS: cefTRIAXone SODIUM 2,000 MG/50 ML BAG IV SCH (13:49)
[2024-04-25 06:31] LABS: Hematocrit (blood only) 39.7 % (37.0-47.0); Hemoglobin 13.4 g/dl (12.0-16.0); Mean Corpuscular Hemoglobin 30.4 pg (25.0-34.0); Mean Corpuscular Hgb Conc 33.8 g/dL (32.0-36.0); Mean Platelet Volume 10.6 fL (9.4-12.4); Platelet Count 271 K/uL (130-400); RDW Coefficient of Variation 12.6 % (11.5-14.5); RDW Standard Deviation 41.9 fL (36.4-46.3); Red Blood Count 4.41 M/uL (4.20-5.40); White Blood Count 9.07 K/ul (4.8-10.8)
[2024-04-25 06:37] LABS: BUN Creatinine Ratio 20.3 (10-20); Calcium 8.9 mg/dl (8.6-10.3); Creatinine Clr Calc Pharmacy 81.9 ml/min; Potassium 3.5 mmol/L (3.5-5.1)
[2024-04-25 07:08] LABS: Basophils % (auto) 1.1 %; Eosinophils % (auto) 1.1 %; Immature Granulocytes % (auto) 6.6 %; Lymphocytes % (auto) 19.8 %; Monocytes # (auto) 1.09 K/uL (0.11-0.59); Neutrophils # (auto) 5.38 K/uL (1.40-6.50); Neutrophils % (auto) 59.4 %; RBC Morphology Unremarkable
[2024-04-25 07:52] VITALS: BP 129/73; TEMP 97.7
--- NOTE | 2024-04-25 08:02 | Hospitalist Progress Note ---
Date of Service April 25, 2024 Assessment & Plan (1) Influenza A: (2) Hypothyroidism: (3) Hypertension: (4) Hyperlipidemia: Plan Patient is a 78-year-old female with past medical history of hypertension, hyperlipidemia, hypothyroidism who presents with 8 days of cough congestion and shortness of breath. initial evaluation showed positive for influenza A, chest x-ray did not show concomitant pneumonia. With initial oxygen requirement, patient was admitted for weaning of oxygen and treatment of influenza Acute hypoxic respiratory failure due to flu A Began with a viral illness likely flu 8 days ago, improving and then with double sickening around 4 days ago. Due to double sickening and leukocytosis with left shift antibiotic coverage for superimposed pneumonia is warranted, abx started w/ Ceftriaxone/Doxy Continue Tamiflu Ceftriaxone, Doxy Added DuoNeb, saline neb, Mucinex. Wean oxygen as able, baseline is room air elevated LFTs likely related to viral illness, these have improved to normal limits lungs much improved since initiation of nebs, suspect with continued improvement possible discharge tomorrow 04/25 04/25- WBC 17k--> 9k, normalized. Afebrile since low grade temp 04/23 of 37.9C On Ceftriaxone/Doxy, tamiflu for + flu. Renal function stable. Added mag to am labs. 91% on RA, consideration for 2 step prior to dc K 3.4 yesterday, on PO supplementation daily--> 3.5 on AM labs. Will add mag for completeness, 1gm IV empirically in meantime Consideration for dc today pending evaluation on Augmentin/doxy to complete course 5-7 days ?PT eval Hypertension BP 129/73 Continue amlodipine, lisinopril, hydrochlorothiazide, metoprolol, Check Mag, low K suspected 2nd to HCTZ and normalized w/ usual dose/continued Hyperlipidemia Continue statin Hypothyroidism Continue Synthroid LFTs normalized on repeat, suspected 2nd to viral illness. No CK on admit but ?mild rhabdo DVT prophylaxis Lovenox Dispo: continue Inpatient stay, possible d/c tomorrow Admission and Anticipated Discharge Date Admission Date: April 23, 2024 Subjective EVal this morning, ongoig cough but able to expectorate more sputum, greenish in color On room air, mag checked/low/getting IV replacement. Does have some wheezing, continued incentive spirometer encouraged. Patient feels stable for dc today, will see how she feels after mag infusion/plan for 2 step as not on oxgen at home. If going well at lunch, will plan to dc today w/ (in room) Questions/concerns addressed at this time. Results & Data Results & Data Vital Signs (Past 12 Hours) Vital Signs Temp Pulse Pulse Resp BP Pulse Ox O2 Del Method 04/25/24 07:51 36.5 C 93 H 14 129/73 91 Room Air 04/25/24 07:06 90 18 91 Room Air 04/25/24 00:19 79 18 95 Room Air Laboratory Results 04/25/24 05:42 04/25/24 05:42 PG Care Time/CCT Total # of Minutes Spent Total Time Spent with Patient: Total time spent is greater than 50% in coordination of care (as documented) at patient's floor/unit and/or counseling patient: Coding Diagnoses Influenza A J10.1 Acquired hypothyroidism E03.9 Hypothyroidism type: acquired Primary hypertension I10 Hypertension type: primary hypertension Mixed hyperlipidemia E78.2 Hyperlipidemia type: mixed hyperlipidemia (2) Hypothyroidism Hypothyroidism type: acquired Qualified Code(s): E03.9 - Hypothyroidism, unspecified (3) Hypertension Hypertension type: primary hypertension Qualified Code(s): I10 - Essential (primary) hypertension (4) Hyperlipidemia Hyperlipidemia type: mixed hyperlipidemia Qualified Code(s): E78.2 - Mixed hyperlipidemia
[2024-04-25] MEDS: MAGNESIUM SULFATE / D5W 1 GM/100 ML BAG IV ONE ×2 (08:22→10:02)
[2024-04-25 08:39] LABS: Magnesium 1.6 mg/dl (1.7-2.4)
--- NOTE | 2024-04-25 10:04 | Discharge Summary ---
Discharge Summary Date of Service April 25, 2024 Principal Dx & Hospital Course #1 = Principal Diagnosis (1) Influenza A: (2) Hypothyroidism: (3) Hypertension: (4) Hyperlipidemia: Plan Acute hypoxic respiratory failure due to flu A 78-year-old female with past medical history of hypertension, hyperlipidemia, hypothyroidism who presents with 8 days of cough congestion and shortness of breath. +Flu testing Initial evaluation showed positive for influenza A, chest x-ray did not show concomitant pneumonia however WBC elevation to 17k on admission and requirement for O2 for adequate oxygenation Due to double sickening and leukocytosis with left shift antibiotic coverage for superimposed pneumonia is warranted, abx started w/ Ceftriaxone/Doxy but also continued on tamiflu and had significant improvement Continued on tamiflu, ceftriaxone, doxycycline along with duonebs/pulmonary toilet with incentive spirometer/Mucinex and saline nebulizers. Titrated O2 as able. Titrated to ROOM AIR and felt stable for dc AM 3/3. 2 step prior to dc WITHOUT needs for supplemental O2 and was discharged on Augmentin/Doxy and tamiflu to complete course, Mucinex and incentive spirometer. Albuterol HFA also sent to use q4-6hr as needed Hypertension BP 129/73 and stable. Continued on amlodipine, lisinopril, HCTZ, metoprolol. Notable K 3.5 on AM labs prior to dc and was 3.4 day prior and continued usual PO Kcl supplementation without additional dose needed but did check mag prior to dc and was low 1.6 and 2 gm IV provided. F/u PCP Hyperlipidemia chronic/stable and remained on statin Hypothyroidism TSH wnl in February of this year, continued on usual Synthroid LFTs normalized on repeat, suspected 2nd to viral illness. No CK on admit but ?mild rhabdo DVT prophylaxis Lovenox SQ while inpatient Notes For Next Care Provider Consider repeat mag w/ next lab draw/consider PO supplementation at baseline Medication Changes From Visit Augmentin 1 tablet BID x 7 day total Doxycycline BID x 5 day total course for atypical Tamiflu BID x 5 day total Mucinex BID Albuterol HFA prn Admission HPI Per Admitting Provider Patient is a 78-year-old female with past medical history of hypertension, hyperlipidemia, hypothyroidism who presents with [id number] day of cough congestion and shortness of breath. Leukocytosis of 17, +transaminitis without elevated bilirubin or alk phos, normal troponin. Patient is influenza A positive. Chest x-ray does not show a focal lung consolidation. Hypoxic and recommended for admission for fluid with acute respiratory failure. She is seen at the bedside. She reports she feels a little bit better during her breathing treatment. She reports that she came down with the flu around 8 days ago. She started to feel better and thought she was improving around Thursday and then started to rapidly worsen starting around 4 days ago. Has had chills, cough, shortness of breath. No chest pain or chest pressure. Denies any history of CHF/heart failure/ME. She has not been lightheaded or dizzy but feels weak. She has been wheezing. Denies history of asthma/COPD. She denies medication allergies. Full code. No other questions at time of assessment. Medical History: Reviewed Medications: Reviewed Surgical History: Reviewed Family history: Reviewed Allergies: Reviewed Social History: Reviewed Code Status: Full Admission Exam Per Admitting Provider General: A&Ox3. NAD. Cooperative. HEENT: Atraumatic, normocephalic. Pulm: Diminished but clear. On neb at time of visit. Symmetrical chest rise. No increased work of breathing. No respiratory distress. Cardiac: RRR, -mrg. Radial pulses intact and symmetrical. Abdominal: Nontender, nondistended, soft. BS present. Ext: warm, dry Discharge Exam General: 78yo female sitting up in bed, NAD, wanting to go home HEENT: head atraumatic normocephalic, mmm, trachea midline Resp: slightly diminished in the bases/occasional cough, faint expiratory wheezing (improving since mag infusion), no significant rales, on ROOM AIR CV: RRR, no significant m/r/g, no pitting edema/calf tenderness GI: +BS, soft/NT : no melvin MSK/Neuro: nonfocal, moves all extremities, answering questions appropriately Psych: AOx3, cooperative with exam Discharge Plan Discharge Items Patient Disposition: Home - Self-Care Reason For Visit: FLU, ?SECONDARY PNA Discharge Diagnosis: Influenza, Pneumonia Goals: You have been hospitalized for an acute medical problem. During your stay at [facility], we have made an effort to correct the problem that brought you to the hospital while keeping you as comfortable as possible. Medications were used to bring your condition under control and your discharge instructions will include directions for any medications you should take after leaving the hospital. Please make sure you see your Primary Care Provider as part of your follow up plan. Activity: As commented below Non-emergency contact: Primary Care Provider Call non-emergency contact if: you have any medication questions, your symptoms worsen, your pain is not controlled, your pain is concerning for you and you have a fever Follow-up/Referrals: Evaristo Wood MD [Primary Care Provider] - 05/03/24 2:00 pm Diet: Heart Healthy Addtl Attending Provider Instructions: You have been hospitalized for shortness of breath and found to be positive for the flu as well as possible bacterial pneumonia. You have been treated with TAMIFLU for the flu and antibiotics for bacterial pneumonia and are going to be continued on TAMIFLU for total 5 days and DOXYCYCLINE (twice daily) for another 3 days for total 5 days but the AUGMENTIN (twice daily) will be for another 5 days to complete 7 day course. You should continue mucinex twice daily and incentive spirometer to help strengthen your lungs. We have also sent albuterol inhaler to use every 4-6 hours as needed. We have done testing to see if your oxygen drops with ambulation and DID NOT NEED ANY OXYGEN AT DISCHARGE! Please return to the ER with any increased fevers/chills, chest pain or shortness of breath, or for any other symptoms concerning for you. It has been a pleasure being a part of the medical team providing for you while you have been in the hospital. Take care! Pending Studies at Discharge: Yes Studies:: Blood cultures - no growth to date after 24 hours Stand-Alone Forms: My [facility] [employer], Smoking Cessation Medications and DC Order Prescriptions: New oseltamivir [Tamiflu] 75 mg Capsule 75 mg PO BID 3 Days Qty: 6 0RF guaifenesin [Mucinex] 600 mg Tablet Extended Release 12hr 1,200 mg PO Q12 Qty: 14 0RF albuterol sulfate 90 mcg/actuation HFA aerosol inhaler 2 inh inhalation Q6H PRN (Reason: shortness of breath or wheezing) Qty: 6.7 0RF amoxicillin-pot clavulanate 875-125 mg tablet 1 tab PO BID Qty: 10 0RF doxycycline hyclate 100 mg capsule 100 mg PO BID Qty: 6 0RF Continued amlodipine 10 mg tablet 10 mg PO QAM Qty: 90 3RF atorvastatin 20 mg tablet 20 mg PO DAILY Qty: 90 3RF hydrochlorothiazide 25 mg tablet 25 mg PO QAM Qty: 90 3RF lisinopril 40 mg tablet 40 mg PO QAM Qty: 90 3RF metoprolol succinate 100 mg tablet extended release 24 hr 100 mg PO QAM Qty: 90 3RF potassium chloride 10 mEq tablet extended release 10 meq PO QAM Qty: 90 3RF levothyroxine [Synthroid] 25 mcg tablet 25 mcg PO DAILY Qty: 90 3RF Discharge Orders: Discharge Order (Routine); Ordered 04/25/24 Ordered By: Naomi Monzon Admission Data Admit Date/Time: 04/23/24 16:04 Attending Provider: Silvano García Admit Provider: Tomás Alvares Primary Care Provider: Evaristo Wood Other Providers: Tomás Alvares Hospital Stay Data Consultations 04/23/24 15:43 ED Decision to Admit Stat Diagnostic Imagining Performed Chest X-Ray 04/23/24 13:29 HISTORY: Chest pain. TECHNIQUE: Portable AP radiographs of the chest. COMPARISON: None. FINDINGS: No focal lung consolidation. No pneumothorax or pleural effusion. Normal heart size. Left-sided aortic arch. Midline trachea. No acute osseous abnormality. Included upper abdomen is unremarkable. IMPRESSION: No acute cardiopulmonary findings. Electronically signed by Virla Damon 04-23-2024 2:22 PM Discharge Instructions Given to Patient (Per Discharging Provider) You have been hospitalized for shortness of breath and found to be positive for the flu as well as possible bacterial pneumonia. You have been treated with TAMIFLU for the flu and antibiotics for bacterial pneumonia and are going to be continued on TAMIFLU for total 5 days and DOXYCYCLINE (twice daily) for another 3 days for total 5 days but the AUGMENTIN (twice daily) will be for another 5 days to complete 7 day course. You should continue mucinex twice daily and incentive spirometer to help strengthen your lungs. We have also sent albuterol inhaler to use every 4-6 hours as needed. We have done testing to see if your oxygen drops with ambulation and DID NOT NEED ANY OXYGEN AT DISCHARGE! Please return to the ER with any increased fevers/chills, chest pain or shortness of breath, or for any other symptoms concerning for you. It has been a pleasure being a part of the medical team providing for you while you have been in the hospital. Take care! Total Time Total Time Spent Total Time Spent (In Minutes): 45 Coding Level of Care Code 86702 INP/OBS DISCH >30 MIN Diagnoses Influenza A J10.1 Acquired hypothyroidism E03.9 Hypothyroidism type: acquired Primary hypertension I10 Hypertension type: primary hypertension Mixed hyperlipidemia E78.2 Hyperlipidemia type: mixed hyperlipidemia
[2024-04-25 12:33] VITALS: PULSE 79; RESP 14; O2SAT 91
--- NOTE | 2024-04-25 14:41 | Electrocardiogram Report ---
Test Reason : Blood Pressure : */* mmHG Vent. Rate : 84 BPM Atrial Rate : 84 BPM P-R Int : 154 ms QRS Dur : 80 ms QT Int : 368 ms P-R-T Axes : 37 -3 23 degrees QTcB Int : 434 ms Normal sinus rhythm Minimal voltage criteria for LVH, may be normal variant ( R in aVL ) Borderline ECG No previous ECGs available Confirmed by Rommel Sifuentes ([id number]) on 04/25/2024 2:41:19 PM Referred By: REFERRED SELF Confirmed By: Rommel Sifuentes
== END 2024-04-25 13:03 | disposition home or self-care (01) | DRG 193 ==
LOC: ED 13:00 → EDINP 16:04 → SUATTDRO 16:04 → 3E 18:22